=== PATIENT | female | born 1995 | race Caucasian/White ===

== ENCOUNTER 2018-10-02 15:25 | Emergency (ER) | payer MEDICAID ==
[~2018-10-02] VITALS: Ht 167.6 cm; Wt 62.0 kg
[~2018-10-02 15:25] MED LIST: AMOXICILLIN500 MG PO; AMOXICILLIN875 MG OR; AMOXICILLIN875 MG PO; BACTRIM DS1 TAB PO; CLARITIN10 M1 PO; HM IBUPROFEN200 MG; MIRACLEMM PO; NO HOME MEDS; TYLENOL # 31 TA1 PO
[2018-10-02] MEDS ORDERED: PRENATA3 PO (15:39)
[2018-10-02] MEDS ORDERED: PRE-NATAL PO (15:40)
[2018-10-02] MEDS ORDERED: BENADRYL 50MG C50 MG PO (16:11)
[2018-10-02 16:20] VITALS: BP 137/86
== END 2018-10-02 16:20 | disposition home or self-care (01) ==
LOC: ED 15:25
DX: O99.512 Diseases of the respiratory system complicating pregnancy, second trimester (principal); J06.9 Acute upper respiratory infection, unspecified; Z3A.17 17 weeks gestation of pregnancy; R50.9 Fever, unspecified; R05 Cough; J02.9 Acute pharyngitis, unspecified

== ENCOUNTER 2018-11-11 10:16 | Emergency (ER) | payer OTHER ==
[~2018-11-11] VITALS: Ht 167.6 cm; Wt 70.0 kg
[~2018-11-11 10:16] MED LIST changes: +BENADRYL 50MG C50 MG PO; +PRE-NATAL PO; +PRENATA3 PO
[2018-11-11] MEDS ORDERED: VENTOLIN HFA IN (12:19)
[2018-11-11 12:23] VITALS: BP 129/74
== END 2018-11-11 12:23 | disposition home or self-care (01) ==
LOC: ED 10:16
DX: O26.892 Other specified pregnancy related conditions, second trimester (principal); R05 Cough; R06.2 Wheezing; Z3A.25 25 weeks gestation of pregnancy

== ENCOUNTER 2019-07-17 07:20 | Emergency (ER) | payer OTHER ==
[~2019-07-17] VITALS: Ht 167.6 cm; Wt 70.0 kg
[~2019-07-17 07:20] MED LIST changes: +VENTOLIN HFA IN
[2019-07-17] MEDS ORDERED: PERMETHRIN5 % EX (07:50)
[2019-07-17 08:13] VITALS: BP 141/94
== END 2019-07-17 08:14 | disposition home or self-care (01) ==
LOC: ED 07:20
DX: R21 Rash and other nonspecific skin eruption (principal)

== ENCOUNTER 2021-02-26 02:12 | Emergency (ER) | payer OTHER ==
[~2021-02-26] VITALS: Ht 167.6 cm; Wt 62.2 kg
[~2021-02-26 02:12] MED LIST changes: +PERMETHRIN5 % EX
[2021-02-26 04:20] VITALS: BP 112/63
== END 2021-02-26 04:23 | disposition home or self-care (01) ==
LOC: ED 02:12
DX: S60.221A Contusion of right hand, initial encounter (principal); S60.511A Abrasion of right hand, initial encounter; W22.09XA Striking against other stationary object, initial encounter

== ENCOUNTER 2022-12-27 11:39 | Emergency (ER) | payer OTHER ==
[~2022-12-27] VITALS: Ht 167.6 cm; Wt 68.4 kg
[2022-12-27] VITALS (16 sets, daily range): BP systolic 103–140; BP diastolic 57–85
[2022-12-27 14:53] LABS: BASO% 0.2 % (0-3); EOS% 0.3 % (0-8); HEMATOCRIT 36.8 % (37.0-47.0); HEMOGLOBIN 12.4 g/dl (12.0-16.0); IMMATURE GRANULOCYTES 0.2 % (0.0-5.0); LYMPH% 9.2 % (15-41); MEAN CELL VOLUME 86.2 fL CALC (80.0-100.0); MEAN CORPUSCULAR HGB CONC 33.7 g/dL CAL (32.0-36.0); MONO% 3.5 % (2-13); NEUT# 9.66 thou/uL (2.00-7.15); NEUT% 86.6 % (42-76); RED BLOOD COUNT 4.27 mill/uL (4.20-5.60); RED CELL DISTRI WIDTH 12.4 % (11.5-15.5)
[2022-12-27 14:54] LABS: ALBUMIN 4.7 g/dL (3.2-5.0); ALKALINE PHOSPHATASE 55 u/l (38-126); ANION GAP 15 (6-22 (CALC)); BILIRUBIN, TOTAL 0.9 mg/dL (0.02-1.3); BUN 11 mg/dL (7-17); BUN/CREATININE RATIO 27 (12-20 (CALC)); CARBON DIOXIDE 24 mmol/l (22-30); CHLORIDE 102 mmol/l (95-108); CREATININE 0.4 mg/dL (0.5-1.0); GFR FOR AFR.AMER. > 60 ML/MIN (>=60 (CALC)); GFR OTHER RACES > 60 ML/MIN (>=60 (CALC)); LIPASE 47 u/l (23-300); POTASSIUM 3.6 mmol/l (3.5-5.1); SGOT/AST 23 u/l (14-36); SODIUM 137 mmol/l (137-146); TOTAL PROTEIN 7.6 g/dL (6.3-8.2)
[2022-12-27 16:34] LABS: URINE BILIRUBIN - DIPSTICK NEGATIVE (NEGATIVE); URINE BLOOD DIPSTICK TRACE-INTACT (NEGATIVE); URINE COLOR YELLOW; URINE GLUCOSE - DIPSTICK NEGATIVE (NEGATIVE); URINE KETONE 40 mg/dL (NEGATIVE); URINE PROTEIN - DIPSTICK NEGATIVE (NEG-TRACE); URINE SPECIFIC GRAVITY 1.025; URINE UROBILINOGEN - DIPSTICK 0.2 E.U./dL (0.2)
[2022-12-27 16:41] LABS: URINE LEUK ESTERASE SMALL (NEGATIVE); URINE NITRITE - DIPSTICK NEGATIVE (Negative)
[2022-12-27 16:56] LABS: URINE BACTERIA FEW hpf; URINE SQUAMOUS EPITHELIAL CELL MANY EPI/hpf (0-FEW)
[2022-12-27] MEDS ORDERED: KEFLEX500 MG PO (17:05)
[2022-12-27] MEDS ORDERED: ONDANSETRON4 MG PO (17:05)
== END 2022-12-27 17:22 | disposition home or self-care (01) ==
LOC: ED 11:39
PROVIDERS: Nurse Practitioner
DX: O21.9 Vomiting of pregnancy, unspecified (principal); O23.41 Unspecified infection of urinary tract in pregnancy, first trimester; N39.0 Urinary tract infection, site not specified; Z3A.00 Weeks of gestation of pregnancy not specified